=== PATIENT | male | born 1950 | race Caucasian/White ===

== ENCOUNTER → 2025-01-03 | Outpatient (CLI) | payer MEDICARE ==
[~2025-01-03] MED LIST: AMLO10; ATOR20; Aspir 8181 MG; HYDR1TAB94; METO25ER
[2025-01-03 14:27] LABS: Stool Occult Bld Immuno 1 Positive (NEGATIVE)
== END ==
LOC: LAB 09:00 → LAB SHORT 09:00
PROVIDERS: Family Medicine
DX: K92.1 Melena (principal)
CPT/HCPCS: 82274